=== PATIENT | male | born 1930 ===

== ENCOUNTER → 2016-07-25 | Outpatient (CLI) | payer MEDICARE, MEDICAID ==
[~2016-07-25] MED LIST: BNZT1T PO; BUPR300T51 PO; CHOL200018 PO; CYAN10006 PO; DNPZ10T PO; FLUT16SP NSEACH; LATA2.5D5 OU; LISI1TAB8 PO; NS.65NA45 NSEACH; OLAN7.5T9 PO; OLN10T PO; POLY255P PO; TERA10CA3 PO; TRAZ100T92 PO; TRM50T PO
== END ==
LOC: EMS 09:14
DX: Z53.20 Procedure and treatment not carried out because of patient's decision for unspecified reasons (principal)